=== PATIENT | male | born 1950 | race Native Hawaiian/Other Pacific Islander ===

== ENCOUNTER 2018-03-17 11:47 | Outpatient (CLI) | payer OTHER, MEDICARE | END 2018-03-17 22:49 | disposition home or self-care (01) | LOC: RAD 11:47 | DX: M54.2 Cervicalgia (principal) ==

== ENCOUNTER 2018-04-23 08:17 | Outpatient (CLI) | payer OTHER, MEDICARE | END 2018-04-23 19:23 | disposition home or self-care (01) | LOC: CT 08:17 | DX: M54.2 Cervicalgia (principal); E78.5 Hyperlipidemia, unspecified; I10 Essential (primary) hypertension | CPT/HCPCS: 93306 ==

== ENCOUNTER 2020-09-19 08:08 | Outpatient (CLI) | payer OTHER, MEDICARE | END 2020-09-19 19:53 | disposition home or self-care (01) | LOC: CT 08:08 | PROVIDERS: ATTEND Nurse Practitioner Family | DX: D18.03 Hemangioma of intra-abdominal structures (principal) | CPT/HCPCS: 36415; 82565; 84520; Q9963 ==

== ENCOUNTER 2021-03-24 09:40 | Outpatient (CLI) | payer OTHER, MEDICARE ==
[2021-03-24 10:05] LABS: PLATELET COUNT 166 K/uL (142-355)
[2021-03-24 10:17] LABS: POTASSIUM 4.9 mmol/L (3.6-5.2)
== END 2021-03-24 19:27 | disposition home or self-care (01) ==
LOC: CT 09:40
PROVIDERS: ATTEND Family Medicine
DX: N32.89 Other specified disorders of bladder (principal)
CPT/HCPCS: 36415; 80053; 85027

== ENCOUNTER 2021-05-30 09:00 | Outpatient (CLI) | payer OTHER | END 2021-05-30 18:53 | disposition home or self-care (01) | LOC: MRI 09:00 | PROVIDERS: ATTEND Family Medicine | DX: M54.17 Radiculopathy, lumbosacral region (principal) | CPT/HCPCS: 36415; 82565; 84520; A9576 ==